=== PATIENT | female | born 1945 | race Caucasian/White ===

== ENCOUNTER → 2016-02-21 | Outpatient (CLI) | payer MEDICARE ==
--- NOTE | 2016-02-21 10:22 | ECHOS ---
DATE OF SERVICE: 02/21/2016 AGE: 70Y SEX: F HT: 65 WT: 150 lbs. Protocol Macho: X Others: Stress Echo Stage: II Dur. of Exercise: 5-1/2 minutes *Heart Rate Blood Pressure *Rest: 71 Rest: 115/57 * *Max. Achieved: 135 Maximum BP: 174/72 85% PMHR: 124 100% PMHR: 152 *METS: 6.7 INDICATIONS: Shortness of breath. MEDICATIONS: Aspirin. Baseline EKG revealed a normal sinus rhythm without significant ST-T changes. Patient walked on a standard Macho protocol for a total duration of 5-1/2 minutes, achieved a maximum heart rate of 135 beats, which is more than 85% of predicted maximal. There were isolated PVCs on rest EKG. As she exercised she did not have any angina. There were upsloping ST segment changes in inferolateral leads. After the exercise was complete in the recovery period at about 2 minutes, the inferolateral changes seemed to persist raising the possibility of ischemia. By EKG criteria, this is considered as a positive stress test with limited exercise capacity. Baseline echo images revealed a focal area of hypokinesia involving the inferobasal portion of left ventricle. The rest of the left ventricle revealed good wall motion and wall thickening. At peak exercise, the focal inferobasal hypokinetic segment seemed to persist, but the rest of the myocardium contracts well with good wall motion and wall thickening. The observed inferobasal hypokinetic segment probably represents a small prior myocardial infarction without stress-induced ischemia. FINAL IMPRESSION: 1. By EKG criteria, this is an abnormal stress test with inferolateral ST segment abnormality at peak exercise. Patient did not have any angina. 2. Abnormal stress echocardiogram with evidence of a small focal inferobasal myocardial infarction without stress-induced ischemia. 3. Clinical correlation is suggested.
== END | disposition home or self-care (01) ==
LOC: RADNMMAIN 08:53
PROVIDERS: ATTEND Internal Medicine
DX: I25.2 Old myocardial infarction (principal); R94.39 Abnormal result of other cardiovascular function study
CPT/HCPCS: 93017; 93350

== ENCOUNTER → 2016-02-22 | Outpatient (CLI) | payer MEDICARE ==
[2016-02-22 14:51] LABS: Basophils # (A) 0.1 k/uL (0-0.2); Basophils % (A) 2 %; CH 31.4; CHCM 32.9; Eosinophils # (A) 0.2 k/uL (0-0.7); Eosinophils % (A) 3 %; HDW 2.37; HGB 12.9 gm/dL (11.4-16.0); Luc # (Auto) 0.15; Luc % (Auto) 2; Lymphocytes # (A) 1.6 k/uL (1.0-4.8); Lymphocytes % (A) 24 %; MCHC 32.3 g/dL (31.0-37.0); MCV 95.8 fL (80.0-100.0); Monocytes # (A) 0.4 k/uL (0-1.0); Monocytes % (A) 7 %; Neutrophils # (A) 4.1 k/uL (1.3-7.7); Neutrophils % (A) 63 %; RBC 4.17 m/uL (3.80-5.40); RDW 12.1 % (11.5-15.5); WBC 6.5 k/uL (3.8-10.6); WBC (Perox) 6.46
[2016-02-22 14:58] LABS: Anion Gap 11 mmol/L; Blood Urea Nitrogen 21 mg/dL (7-17); Carbon Dioxide 27 mmol/L (22-30); Chloride 104 mmol/L (98-107); Non-African American GFR(MDRD) >60 (>60 ml/min/1.73 sqM); Potassium 4.5 mmol/L (3.5-5.1); Sodium 142 mmol/L (137-145)
== END | disposition home or self-care (01) ==
LOC: LABWHC1 14:11
PROVIDERS: ATTEND Internal Medicine Cardiovascular Disease
DX: Z01.812 Encounter for preprocedural laboratory examination (principal); R94.30 Abnormal result of cardiovascular function study, unspecified
CPT/HCPCS: 36415; 80051; 82565; 84520; 85025

== ENCOUNTER 2016-02-26 07:50 | Day surgery (SDC) | payer MEDICARE ==
[2016-02-23 14:47] VITALS: BMI 25.7
[~2016-02-26 07:50] MED LIST: ALPRAZolam 0.25 MG TAB PO PRN; ASPIRIN 325 MG TAB PO ONE; ATORVASTATIN 80 MG TAB PO STA; SODIUM CHLORIDE 0.9% 1,000 ML in EMPTY BAG 1 BAG IV ONE
[2016-02-26 08:07] VITALS: PULSE 65; TEMP 98.1
[2016-02-26] MEDS ORDERED: IV FLUID CONTINUATION 1,000 ML IV ONE (08:35)
[2016-02-26] MEDS ORDERED: diphenhydrAMINE 50 MG/ML 1 ML VIAL IVP ONE (08:40)
[2016-02-26] MEDS: MIDAZOLAM 2 MG/2 ML VIAL IVP ONE ×3 (08:40→08:46)
[2016-02-26] MEDS ORDERED: LIDOCAINE 2% INJ 20 MG/ML SQ ONE (08:43)
[2016-02-26] MEDS ORDERED: SODIUM CHLORIDE 0.9% 1,000 ML IV SCH (09:00)
[2016-02-26] MEDS ORDERED: IOHEXOL 350 MG/ML 100 ML BOTTLE INJ ONE (09:00)
[2016-02-26] MEDS ORDERED: RX INFO: IV CONTRAST WAS GIVEN 1 EACH MISC MISCELLANE PRN (09:00)
--- NOTE | 2016-02-26 09:05 | P.OP ---
Date of Procedure: 02/26/16 Preoperative Diagnosis: Shortness of breath with abnormal stress test Procedure(s) Performed: Left heart catheterization Operative Findings: Referring Physician: Torito Indication: Shortness of breath with abnormal stress test Procedure Note: After obtaining informed consent left heart catheterization and coronary angiogram were performed via the right femoral artery using standard Bruna catheters. Patient tolerated the procedure well without any obvious immediate complications. A femoral angiogram was obtained and Angio-Seal was deployed for hemostasis. Findings: Hemodynamics: Left ventricular end-diastolic pressure 16 mm Left Ventriculogram: Not performed Angiographic Data:] #1 Left Main Coronary Artery: Normal size vessel and is free of stenosis #2 Left Anterior Descending Coronary Artery: Normal vessel and diagonal branches are free of stenosis as is the LAD #3 Circumflex Coronary Artery: Nondominant vessel and is free of stenosis #4 Right Coronary Artery: Large dominant vessel and is free of stenosis Conclusions: #1: Normal coronary arteries #2: Normal left ventricular end-diastolic pressure Plan: Patient shortness of breath is probably noncardiac in origin and the stress echo is about false positive stress. I reviewed angiographic data with the patient and advised on risk factor modification and optimal control of hypertension.
[2016-02-26] MEDS ORDERED: fentaNYL (PF) 50 MCG/ML 2 ML AMP IV ONE (09:08)
[2016-02-26] MEDS ORDERED: HYDROcodone/APAP 5-325MG 1 EACH TAB PO STA (09:25)
[2016-02-26 11:51] VITALS: RESP 18
[2016-02-26 15:57] VITALS: BP 132/70
== END 2016-02-26 15:30 | disposition home or self-care (01) ==
LOC: CATHCVL 07:50
PROVIDERS: ATTEND Internal Medicine Cardiovascular Disease
DX: R06.02 Shortness of breath (principal); R53.83 Other fatigue; R94.39 Abnormal result of other cardiovascular function study; I10 Essential (primary) hypertension; E78.2 Mixed hyperlipidemia; Z87.891 Personal history of nicotine dependence; Z79.82 Long term (current) use of aspirin; Z79.899 Other long term (current) drug therapy
CPT/HCPCS: 93458; C1760; C1894; C1769; J2001; J2250; J1200; Q9967; J3010

== ENCOUNTER → 2016-10-22 | Outpatient (CLI) | payer MEDICARE ==
--- NOTE | 2016-10-23 07:43 | WWHP ---
[facility] - HISTORY AND PHYSICAL DATE OF SERVICE: 10/22/2016 CHIEF COMPLAINT: The patient is here for her routine gynecologic exam and mammogram. HPI: This is a 71-year-old, G3, P3, with an LMP of approximately 2000. The patient states it has been about 3 to 4 years since her last Pap smear. She has been experiencing some right lower quadrant abdominal pain during the past 2 months. She states it is intermittent and can be up to a 5/10 on the pain scale. She notices it from the front to the back and she thinks it possibly could be related to her hip. It does not seem to be worse with certain types of movement. The pain is currently at a 4/10. She denies any postmenopausal bleeding. PAST MEDICAL HISTORY: Hypothyroidism, irregular heart beat, elevated cholesterol and gastroesophageal reflux disease. MEDICATIONS: 1. Metoprolol 50 mg daily. 2. Levothyroxine 50 mcg daily. 3. Simvastatin 10 mg daily. 4. Omeprazole 20 mg daily. 5. Aspirin 81 mg daily. 6. Vitamin E 1 daily. 7. Vitamin D 1 daily. ALLERGIES: No known drug allergies. PAST SURGICAL HISTORY: section x3, appendectomy in the past and eye surgeries x3. PAST OB HISTORY: Three section deliveries. 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 SOCIAL HISTORY: She briefly smoked while in college but has quit. She has 1 to 2 alcoholic drinks per day and denies drug use. She has been since 1967 and is retired. She has 2 grandchildren, one of which I delivered. FAMILY HISTORY: Father had esophageal cancer. REVIEW OF SYSTEMS: She believes she has gained about 5 pounds over the last year. She denies respiratory cardiac or GI problems. She denies maltreatment or falling. : She can have a small amount of urinary leakage when she sneezes hard. PHYSICAL EXAM: Blood pressure 129/57, height 5 feet 5 inches, weight 160 pounds, temperature 98.0, pulse 56. This is a well-developed, well-nourished, white female, who is alert and oriented x3, in no acute distress. HEENT is within normal limits. NECK: Supple without mass or thyromegaly. CHEST AND LUNGS: Clear to auscultation. HEART: Regular rate and rhythm. Breasts are without mass or discharge. Axillary exam is negative for adenopathy. BACK: Negative for CVA tenderness. ABDOMEN: Soft and there is minimal right lower quadrant tenderness without rebound tenderness. There are no palpable abdominal masses. PELVIC EXAM: External genitalia reveals [id number] atrophy without lesions. Cervix and vagina reveals [id number] atrophy without lesions. There is no evidence of prolapse. The uterus is mid-position, nongravid size and nontender. There are no palpable adnexal masses or tenderness. Rectovaginal exam is negative for mass or tenderness and is negative for occult blood. EXTREMITIES: Nontender. IMPRESSION: A 71-year-old, menopausal female, with intermittent right lower quadrant abdominal pains for the last 2 months with minimal right lower quadrant tenderness and otherwise unremarkable exam. PLAN: 1. Pap smear was performed. 2. Self breast examination was discussed. 3. Mammogram will be done today. 4. The patient will be scheduled for a pelvic ultrasound to further evaluate the right lower quadrant tenderness and to rule out any ovarian pathology. 5. Osteoporosis prevention was discussed. She states she had a bone density test done by Dr. Sheppard earlier this year. She will try to have a copy of this sent to me. 6. She will return in 1 year. MMODL / IJN: [id number] /
--- NOTE | 2016-10-24 09:15 | MM ---
Reason for exam: screening (asymptomatic). Last mammogram was performed 1 year ago. History: Patient is postmenopausal. Excisional biopsy of the left breast. Physical Findings: A clinical breast exam by your physician is recommended on an annual basis and results should be correlated with mammographic findings. MG 3D Screening Mammo W/Cad Bilateral CC and MLO view(s) were taken. Prior study comparison: October 20, 2015, bilateral MG 3d screening mammo w/cad. July 15, 2014, bilateral MG screening mammo w CAD. The breast tissue is heterogeneously dense. This may lower the sensitivity of mammography. No significant changes when compared with prior studies. ASSESSMENT: Negative, BI-RAD 1 RECOMMENDATION: Routine screening mammogram of both breasts in 1 year.
== END | disposition home or self-care (01) ==
LOC: WWCWWP 13:18
PROVIDERS: ATTEND Obstetrics & Gynecology
DX: Z12.31 Encounter for screening mammogram for malignant neoplasm of breast (principal)
CPT/HCPCS: 77063; G0202

== ENCOUNTER → 2016-11-11 | Outpatient (CLI) | payer MEDICARE ==
--- NOTE | 2016-11-11 13:39 | US ---
EXAMINATION TYPE: US pelvic complete DATE OF EXAM: 11/11/2016 COMPARISON: NONE CLINICAL HISTORY: R10 Acute Abd. right sided pelvic pain, patient states it may be related to her hi p TECHNIQUE: TA, no TV Date of LMP: 15+ years ago EXAM MEASUREMENTS: Uterus: 4.7 x 2.0 x 2.4 cm Endometrial Stripe: not seen Right Ovary: not seen Left Ovary: not seen 1. Uterus: Anteverted wnl 2. Endometrium: not seen 3. Right Ovary: not seen due to atrophy and bowel gas 4. Left Ovary: not seen due to atrophy and bowel gas 5. Bilateral Adnexa: wnl 6. Posterior cul-de-sac: wnl Exam is slightly suboptimal as only transabdominal imaging is performed. Visualized uterus is unremar kable. Endometrium is not well seen and presumed atrophic. IMPRESSION: Suboptimal study without suspicious finding seen to account for patient's symptoms.
== END | disposition home or self-care (01) ==
LOC: RADUSWWP 12:47
PROVIDERS: ATTEND Obstetrics & Gynecology
DX: R10.31 Right lower quadrant pain (principal)
CPT/HCPCS: 76856

== ENCOUNTER → 2018-05-12 | Outpatient (CLI) | payer MEDICARE ==
[2018-05-12 14:05] VITALS: BP 114/74; PULSE 76; RESP 18; TEMP 97.3; BMI 27.1
--- NOTE | 2018-05-12 14:58 | P.HPOB ---
History of Present Illness H&P Date: 05/12/18 Chief Complaint: The patient is here for her routine gynecologic exam and ma mmogram. This is a 72-year-old G3 PIII with an LMP of 1999. The patient is without gynecologic complaints. Review of Systems She has gained 3 pounds over the last year. She denies respiratory, cardiac and G.I. problems. She denies maltreatment or problems with falling. : occasional small leakage was laughing or coughing. Past Medical History Past Medical History: GERD/Reflux, Hyperlipidemia, Thyroid Disorder Additional Past Medical History / Comment(s): hx. palpitations, hypothyroidism, osteopenia. 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 History of Any Multi-Drug Resistant Organisms: None Reported Past Surgical History: Appendectomy, Section Additional Past Surgical History / Comment(s): C/S x3, eye surg. x3 Past Anesthesia/Blood Transfusion Reactions: Postoperative Nausea & Vomiting (PONV) Past Psychological History: No Psychological Hx Reported Smoking Status: Former smoker Past Alcohol Use History: Daily (102 per day) Additional Past Alcohol Use History / Comment(s): smoked for 3 yrs. in college Past Drug Use History: None Reported Additional History: She has been since 1967 and is retired. - Past Family History Father Family Medical History: Cancer Additional Family Medical History / Comment(s): Esophageal cancer. Medications and Allergies Home Medications Medication Instructions Recorded Confirmed Type Cholecalciferol [Vitamin D3] 1,000 unit PO DAILY 02/23/16 05/12/18 History Levothyroxine Sodium [Synthroid] 50 mcg PO DAILY 02/23/16 05/12/18 History Metoprolol Succinate [Toprol XL] 50 mg PO DAILY 02/23/16 05/12/18 History Omeprazole 20 mg PO DAILY 02/23/16 05/12/18 History Simvastatin [Zocor] 5 mg PO HS 02/23/16 05/12/18 History Allergies Allergy/AdvReac Type Severity Reaction Status Date / Time No Known Allergies Allergy Verified 05/12/18 13:52 Exam Vital Signs Temp Pulse Resp BP Pulse Ox 05/12/18 14:03 97.3 F L 76 18 114/74 100 Intake and Output 05/11/18 05/12/18 05/12/18 22:59 06:59 14:59 Other: Weight 73.936 kg Height 5'5", weight 163 pounds, BMI 27.1. This is a well-developed well-nourished white female who is alert and oriented times 3 in no acute distress. HEENT: Within normal limits. NECK: Supple without mass or thyromegaly. CHEST AND LUNGS: Clear to auscultation. HEART: Regular rate and rhythm. BREASTS: Are without mass or discharge. AXILLARY EXAM: Negative for adenopathy. BACK: Negative for CVA tenderness. ABDOMEN: Soft, nontender, without palpable masses. PELVIC EXAM: Normal external genitalia with moderate atrophy. Cervix and vagina appear normal with moderate atrophy. There is no unusual discharge. There is no evidence of prolapse. The uterus is midposition, nongravid size and nontender. There are no palpable adnexal masses or tenderness. RECTAL EXAM: rectovaginal exam is negative for mass or tenderness and is negative for occult blood. EXTREMITIES: Nontender. IMPRESSION: 1. 72 year old menopausal female with normal gynecologic exam. 2. History of osteopenia PLAN: 1. Pap smear was deferred since she had a normal one on 10/22/2016. 2. Self breast awareness was discussed with the patient. 3. Screening mammogram will be done today. 4. Osteoporosis prevention was discussed. I have stressed the importance of adequate calcium, vitamin D and regular exercise. Recommended amounts of calcium and vitamin D were also discussed. The patient states a bone density t est was done last month and showed osteopenia. This was done through Dr. Sheppard, her primary care physician. She will continue to do the bone density testing through her primary care doctor. 5. She did receive a flu shot last fall. 6. She was advised to return in one year for her annual well woman exam.
--- NOTE | 2018-05-14 11:34 | MM ---
Reason for exam: screening (asymptomatic). Last mammogram was performed 1 year and 7 months ago. History: Patient is postmenopausal. Excisional biopsy of the left breast. Physical Findings: A clinical breast exam by your physician is recommended on an annual basis and results should be correlated with mammographic findings. MG 3D Screening Mammo W/Cad Bilateral CC and MLO view(s) were taken. Prior study comparison: October 22, 2016, bilateral MG 3d screening mammo w/cad. October 20, 2015, bilateral MG 3d screening mammo w/cad. There are scattered fibroglandular densities. Focal asymmetry right upper outer quadrant anterior position, stable. No significant changes when compared with prior studies. ASSESSMENT: Benign, BI-RAD 2 RECOMMENDATION: Routine screening mammogram of both breasts in 1 year.
== END ==
LOC: WWCWWP 13:38
PROVIDERS: ATTEND Obstetrics & Gynecology
DX: Z12.31 Encounter for screening mammogram for malignant neoplasm of breast (principal)
CPT/HCPCS: 77063; 77067

== ENCOUNTER → 2020-09-20 | Outpatient (CLI) | payer MEDICARE ==
--- NOTE | 2020-09-25 08:53 | MM ---
Reason for exam: screening (asymptomatic). Last mammogram was performed 2 years and 4 months ago. History: Patient is postmenopausal. Excisional biopsy of the left breast. Took hormonal contraceptives for 10 years. Physical Findings: A clinical breast exam by your physician is recommended on an annual basis and results should be correlated with mammographic findings. MG 3D Screening Mammo W/Cad Bilateral CC and MLO view(s) were taken. Prior study comparison: May 12, 2018, bilateral MG 3d screening mammo w/cad. October 22, 2016, bilateral MG 3d screening mammo w/cad. The breast tissue is heterogeneously dense. This may lower the sensitivity of mammography. There is chronic nodularity in the left inferior MLO view. No significant changes when compared with prior studies. ASSESSMENT: Benign, BI-RAD 2 RECOMMENDATION: Routine screening mammogram of both breasts in 1 year.
== END | disposition home or self-care (01) ==
LOC: RADMAMWWP 07:46
PROVIDERS: ATTEND Family Medicine
DX: Z12.31 Encounter for screening mammogram for malignant neoplasm of breast (principal); Z78.0 Asymptomatic menopausal state
CPT/HCPCS: 77063; 77067

== ENCOUNTER → 2021-11-30 | Outpatient (CLI) | payer MEDICARE ==
--- NOTE | 2021-12-03 09:26 | MM ---
Reason for Exam: Screening (asymptomatic). Last mammogram was performed 1 year(s) and 2 month(s) ago. Patient History: Menarche at age 14. First Full-Term at age 28. Postmenopausal. Patient used Hormonal Contraceptives for 10 years. Excisional Biopsy on the Left side. Risk Values: Subha 5 year model risk: 2.3%. NCI Lifetime model risk: 5.3%. Prior Study Comparison: 10/22/2016 Bilateral Screening Mammogram, [facility]. 05/12/2018 Bilateral Screening Mammogram, [facility]. 09/20/2020 Bilateral Screening Mammogram, [facility]. Tissue Density: There are scattered fibroglandular densities. Findings: Analyzed By CAD. There is no suspicious group of microcalcifications or new suspicious mass in either breast. Overall Assessment: Negative, BI-RAD 1 Management: Screening Mammogram of both breasts in 1 year. A clinical breast exam by your physician is recommended on an annual basis and results should be correlated with mammographic findings. [facility] will attempt to contact patient to return for supplemental views and ultrasound if indicated. Electronically signed and approved by: Antonio Bal DO
== END | disposition home or self-care (01) ==
LOC: RADMAMWWP 11:24
PROVIDERS: ATTEND Family Medicine
DX: Z12.31 Encounter for screening mammogram for malignant neoplasm of breast (principal); Z78.0 Asymptomatic menopausal state
CPT/HCPCS: 77063; 77067

== ENCOUNTER → 2022-12-26 | Outpatient (CLI) | payer MEDICARE ==
--- NOTE | 2022-12-27 08:28 | MM ---
Reason for Exam: Screening (asymptomatic). Last mammogram was performed 1 year(s) and 1 month(s) ago. Patient History: Menarche at age 14. First Full-Term at age 28. Postmenopausal. Patient used Hormonal Contraceptives for 10 years. Excisional Biopsy on the Left side. Risk Values: Subha 5 year model risk: 2.3%. NCI Lifetime model risk: 5.0%. Prior Study Comparison: 05/12/2018 Bilateral Screening Mammogram, [facility]. 09/20/2020 Bilateral Screening Mammogram, [facility]. 11/30/2021 Bilateral MG 3D screening mammo w/cad, [facility]. Tissue Density: There are scattered fibroglandular densities. Findings: Analyzed By CAD. There is no suspicious group of microcalcifications or new suspicious mass. Overall Assessment: Negative, BI-RAD 1 Management: Screening Mammogram of both breasts in [address] [facility] will attempt to contact patient to return for supplemental views and ultrasound if indicated. Patient should continue monthly self-breast exams. A clinical breast exam by your physician is recommended on an annual basis. This exam should not preclude additional follow-up of suspicious palpable abnormalities. Note on Subha scores and lifetime risk: 1. A Subha score greater than 3% is considered moderate risk. If this is the case, consider specialist referral to assess eligibility for a risk reducing agent. 2. If overall lifetime risk for the development of breast cancer is 20% or higher, the patient may qualify for future screening with alternating mammogram and breast MRI. Electronically signed and approved by: Antonio Bal DO
== END | disposition home or self-care (01) ==
LOC: RADMAMWWP 07:18
PROVIDERS: ATTEND Family Medicine
DX: Z12.31 Encounter for screening mammogram for malignant neoplasm of breast (principal); R92.323 Mammographic fibroglandular density, bilateral breasts; Z78.0 Asymptomatic menopausal state
CPT/HCPCS: 77063; 77067

== ENCOUNTER → 2024-02-19 | Outpatient (CLI) | payer MEDICARE ==
--- NOTE | 2024-02-20 10:54 | MM ---
Reason for Exam: Screening (asymptomatic). Last mammogram was performed 1 year(s) and 2 month(s) ago. Patient History: Menarche at age 14. First Full-Term at age 28. Postmenopausal. Patient used Hormonal Contraceptives for 10 years. Excisional Biopsy on the Left side. Risk Values: Subha 5 year model risk: 2.3%. NCI Lifetime model risk: 4.7%. Prior Study Comparison: 09/20/2020 Bilateral Screening Mammogram, [facility]. 11/30/2021 Bilateral MG 3D screening mammo w/cad, [facility]. 12/26/2022 Bilateral MG 3D screening mammo w/cad, [facility]. Tissue Density: The breasts are heterogeneously dense, which may obscure small masses. Findings: Analyzed By CAD. Right breast: There is no suspicious group of microcalcifications or new suspicious mass. Left breast: There is no suspicious group of microcalcifications or new suspicious mass. Overall Assessment: Benign, BI-RAD 2 Management: Screening Mammogram of both breasts in [address] [facility] will attempt to contact patient to return for supplemental views and ultrasound if indicated. Patient should continue monthly self-breast exams. A clinical breast exam by your physician is recommended on an annual basis. This exam should not preclude additional follow-up of suspicious palpable abnormalities. Note on Subha scores and lifetime risk: 1. A Subha score greater than 3% is considered moderate risk. If this is the case, consider specialist referral to assess eligibility for a risk reducing agent. 2. If overall lifetime risk for the development of breast cancer is 20% or higher, the patient may qualify for future screening with alternating mammogram and breast MRI. [facility], , 02/19/2024 10:32 AM. Electronically signed and approved by: Antonio Bal DO
== END | disposition home or self-care (01) ==
LOC: RADMAMWWP 09:20
PROVIDERS: ATTEND Family Medicine
DX: Z12.31 Encounter for screening mammogram for malignant neoplasm of breast (principal); Z78.0 Asymptomatic menopausal state; R92.333 Mammographic heterogeneous density, bilateral breasts
CPT/HCPCS: 77063; 77067